=== PATIENT | male | born 1985 | race Caucasian/White ===

== ENCOUNTER 2023-11-16 07:13 | Emergency (ER) | payer BC ==
[~2023-11-16] VITALS: Ht 190.5 cm; Wt 119.9 kg
[2023-11-16 07:59] LABS: Eosinophils # (auto) 0.1 10 ^3/uL (0-0.8); Hemoglobin 12.3 g/dL (13.5-17.5); White Blood Cell 7.4 10^3/uL (4.4-10.8)
[2023-11-16] MEDS: ONDANSETRON ODT 4 MG TAB PO ONE (07:59)
[2023-11-16] MEDS: KETOROLAC TROMETH 60MG/2ML VIAL IM ONE (07:59)
[2023-11-16 08:00] LABS: Basophils # (auto) 0.1 10 ^3/uL (0-0.2); Basophils % (auto) 0.8 % (0.0-2.0); Eosinophils % (auto) 1.1 % (0.0-7.0); Hematocrit 38.8 % (41.0-53.0); Lymphocytes % (auto) 13.4 % (10.0-50.0); Mean Corpuscular Hemoglobin 23.8 pg (28.0-32.0); Mean Corpuscular Hgb Conc. 31.7 g/dL (32.0-36.0); Mean Corpuscular Volume 75.1 fL (80.0-100.0); Monocytes # (auto) 0.7 10 ^3/uL (0-1.3); Monocytes % (auto) 9.1 % (0.0-12.0); Neutrophils # (auto) 5.6 10 ^3/uL (1.6-8.6); Neutrophils % (auto) 75.6 % (37.0-80.0); Nucleated Red Blood Cells % 0.1 %; Red Blood Cells 5.17 10^6/uL (4.5-5.90); Red Cell Distribution Width 16.5 % (11.8-14.3)
[2023-11-16 08:22] LABS: Alanine Aminotransferase 16 U/L (7-40); Albumin 4.7 g/dL (3.2-4.8); Alkaline Phosphatase 106 U/L (46-116); Anion Gap 7 (5-15); Aspartate Aminotransferase 14 U/L (13-40); BUN/Creatinine Ratio 9.2 (10.0-20.0); Blood Urea Nitrogen 11 mg/dL (9-23); Calcium 9.9 mg/dL (8.5-10.1); Carbon Dioxide 25 mmol/L (20-30); Chloride 105 mmol/L (98-107); Glucose 100 mg/dL (74-106); Potassium 4.4 mmol/L (3.5-5.1); Sodium 137 mmol/L (136-145)
[2023-11-16 08:23] LABS: Bilirubin, Total 0.3 mg/dL (0.2-1.0); Total Protein 7.5 g/dL (5.7-8.2)
[2023-11-16 08:27] LABS: Urine Bacteria None Seen /hpf (None Seen)
[2023-11-16 08:28] VITALS: BP 142/97; PULSE 70; RESP 12; TEMP 97.7; O2SAT 99
[2023-11-16 08:41] LABS: Urine Amorphous Crystal FEW /hpf (None Seen); Urine Blood 3+ /uL (Negative); Urine Color Light-Yellow (Yellow); Urine Mucus FEW (None Seen); Urine Protein, UAD TRACE (Negative); Urine Specific Gravity 1.021 (1.001-1.035); Urine Urobilinogen Normal (Negative); Urine WBC 1 /hpf (0 - 3); Urine pH 5.5 (5.0-9.0)
[2023-11-16 08:42] LABS: Urine Clarity Hazy (Clear)
[2023-11-16 08:52] LABS: Amphetamine Screen, Urine Neg (NEGATIVE); Barbiturate Scree,Urine Neg (NEGATIVE); Benzodiazephine Screen, Urine Neg (NEGATIVE); Cannabinoid Screen, Urine Neg (NEGATIVE); Cocaine Screen, Urine Neg (NEGATIVE); Opiate Scree,Urine Neg (NEGATIVE); Phencyclidine Screen, Urine Neg (NEGATIVE)
[2023-11-16] MEDS ORDERED: NAP500T PO (08:58)
[2023-11-16] MEDS ORDERED: TAMS-35 PO (08:58)
[2023-11-16] MEDS ORDERED: ZOFR4T PO (08:58)
[2023-11-18 13:30] LABS: Lipase 71 U/L (12-53)
== END 2023-11-16 09:05 | disposition home or self-care (01) ==
LOC: ER 07:13
DX: N13.2 Hydronephrosis with renal and ureteral calculous obstruction (principal); Z79.899 Other long term (current) drug therapy
CPT/HCPCS: 36415; 74176; 80053; 80307; 81001; 83690; 85025; 96372; 99285; J1885; Q0162